=== PATIENT | male | born 1995 | race Caucasian/White ===

== ENCOUNTER 2020-01-31 10:53 | Emergency (ER) | payer OTHER, MEDICAID, SELFPAY ==
[2019-06-28 14:20] VITALS: BMI 20.1
[2020-01-31 10:55] VITALS: BP 140/101; PULSE 102; RESP 13; TEMP 36.4; O2SAT 98; BMI 18.9
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
[2020-01-31] MEDS: Ondansetron 4 MG/2 ML Vial IV (11:18)
[2020-01-31] MEDS: fentaNYL 100 MCG/2 ML Ampul 50 MCG IV (11:18)
[2020-01-31] MEDS: 0.9% Normal Saline 1,000 ML 999 ML IV (11:19)
[2020-01-31 11:25] LABS: Absolute Lymphocyte Count 3.03 X10^3/uL (0.83-4.51); Absolute Neutrophil Count 5.8 X10^3/uL (2.0-7.7); Basophil# 0.07 X10^3/uL; Basophil% 0.7 % (0-1); Hematocrit 44.2 % (40-54); Lymphocyte # 3.03 X10^3/ul (4.0); Lymphocyte % 30.6 % (19-41); Mean Corp Hgb Conc 33.9 g/dL (32-36); Mean Corpuscular Hgb 31.8 pg (27.0-32.0); Mean Corpuscular Volume 93.8 fL (80-94); Mean Platelet Vol. 11.8 fl (6.2-12.0); Monocyte# 0.52 X10^3/uL; Monocyte% 5.3 % (0-10); NRBC Flagged by Analyzer 0 % (0-5); Neutrophil # 5.84 X10^3/uL (2.7-7.7); Platelet Count 210 K/mm3 (150-450); RBC Distribution Width SD 41.6 fl (35.1-43.9); Red Blood Count 4.71 M/mm3 (4.6-6.2); White Blood Count 9.9 K/mm3 (4.4-11.0)
[2020-01-31] MEDS: Diphth,Pertuss(Acell),Tet Vac 0.5 ML Vial IM (11:28)
--- NOTE | 2020-01-31 11:31 | NURSING ---
Fluids switched to LR per [place] gen request
[2020-01-31 11:34] VITALS: BP 138/98; PULSE 102; RESP 17; O2SAT 97
[2020-01-31 11:41] LABS: ALB/GLOB Ratio 1.3 RATIO (0.9-2.4); AST(SGOT) 27 U/L (15-37); Alanine Aminotransfer ALT/SGPT 19 U/L (16-61); Albumin, Serum 3.9 g/dL (3.2-5.0); Alkaline Phosphatase 72 U/L (45-117); Anion Gap 10 (5-15); BUN 20 mg/dL (7-18); BUN/Creat Ratio 21.8 RATIO (10-20); Calcium,Total 8.4 mg/dL (8.5-10.1); Chloride 107 mmol/L (98-107); Creatinine, Serum 0.92 mg/dL (0.70-1.30); EST Glomerular Filtration Rate 109 mL/min (>60); Est Glom Filt Rate - Afr Amer 132 mL/min (>60); Globulin 2.9 g/dL (2.2-4.2); Glucose 115 mg/dL (74-106); Potassium 4.1 mmol/L (3.5-5.1); Protein, Total 6.8 g/dL (6.4-8.2); Sodium Level 139 mmol/L (136-145)
--- NOTE | 2020-01-31 11:44 | NURSING ---
Report called to Belia at [facility]
--- NOTE | 2020-01-31 11:59 | NURSING ---
Called Belia again from [facility]- ETA to [facility] is 45 min, verbalized understanding
--- NOTE | 2020-01-31 12:10 | ED.RN ---
PHYSICIANS WILL BE HERE IN 45 MIN
[2020-01-31 12:15] VITALS: BP 131/89; PULSE 101; RESP 19; O2SAT 99
[2020-01-31 12:16] VITALS: BP 131/89; PULSE 101; RESP 19; O2SAT 99
[2020-01-31] MEDS: morphine 8 MG/ML Syringe IV (12:34)
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
[2020-01-31] MEDS: 0.9% Normal Saline 1,000 ML 1000 ML IV (12:40)
== END 2020-01-31 12:43 | disposition designated cancer center or children's hospital (05) ==
PROVIDERS: Emergency Provider Emergency Medicine
DX: T20.07XA Burn of unspecified degree of neck, initial encounter (principal); T22.00XA Burn of unspecified degree of shoulder and upper limb, except wrist and hand, unspecified site, initial encounter; T24.001A Burn of unspecified degree of unspecified site of right lower limb, except ankle and foot, initial encounter; T24.002A Burn of unspecified degree of unspecified site of left lower limb, except ankle and foot, initial encounter; T20.00XA Burn of unspecified degree of head, face, and neck, unspecified site, initial encounter; X06.2XXA Exposure to ignition of other clothing and apparel, initial encounter; Y93.9 Activity, unspecified; Y92.69 Other specified industrial and construction area as the place of occurrence of the external cause; Y99.0 Civilian activity done for income or pay
CPT/HCPCS: 71045; 80053; 85025; 90715; 96361; 96374; 96375; 99285; J7030; J7120; A4216; J2405